=== PATIENT | female | born 1940 | race Hispanic/Latino ===

== ENCOUNTER → 2017-05-09 | Outpatient (CLI) | payer MEDICARE | END | disposition home or self-care (01) | LOC: RAH 09:05 | PROVIDERS: ATTEND Internal Medicine | DX: E04.2 Nontoxic multinodular goiter (principal); E11.65 Type 2 diabetes mellitus with hyperglycemia; I10 Essential (primary) hypertension; E78.5 Hyperlipidemia, unspecified; F03.90 Unspecified dementia, unspecified severity, without behavioral disturbance, psychotic disturbance, mood disturbance, and anxiety; I25.10 Atherosclerotic heart disease of native coronary artery without angina pectoris; Z95.5 Presence of coronary angioplasty implant and graft; Z83.3 Family history of diabetes mellitus; Z82.49 Family history of ischemic heart disease and other diseases of the circulatory system; Z88.0 Allergy status to penicillin; Z90.710 Acquired absence of both cervix and uterus; Z98.890 Other specified postprocedural states; Z79.899 Other long term (current) drug therapy | CPT/HCPCS: 10022; 76942; 88173; 88305; A4215; 60100 ==

== ENCOUNTER → 2017-07-05 | Outpatient (CLI) | payer MEDICARE | END | disposition home or self-care (01) | LOC: OIH 14:09 | PROVIDERS: ATTEND Family Medicine | DX: M85.871 Other specified disorders of bone density and structure, right ankle and foot (principal) | CPT/HCPCS: 73630 ==

== ENCOUNTER → 2017-09-13 | Outpatient (CLI) | payer MEDICARE | END | disposition home or self-care (01) | LOC: OIH 11:04 | PROVIDERS: ATTEND Family Medicine | DX: S92.911A Unspecified fracture of right toe(s), initial encounter for closed fracture (principal); X58.XXXA Exposure to other specified factors, initial encounter; Y93.89 Activity, other specified; Y92.89 Other specified places as the place of occurrence of the external cause; Y99.8 Other external cause status | CPT/HCPCS: 73630 ==

== ENCOUNTER → 2017-12-19 | Outpatient (CLI) | payer MEDICARE, OTHER | END | disposition home or self-care (01) | LOC: OIH 10:31 | PROVIDERS: ATTEND Family Medicine | DX: M19.012 Primary osteoarthritis, left shoulder (principal) | CPT/HCPCS: 73030 ==

== ENCOUNTER 2018-10-22 14:20 | Emergency (ER) | payer MEDICARE ==
[2018-10-22] MEDS ORDERED: FAMOTIDINE 20MG TAB 20 MG TAB ONE (15:19)
[2018-10-22] MEDS ORDERED: MAG HYDROX/AL HYDROX/SIMETH ES 30 ML SUSP UDCUP ONE (15:19)
[2018-10-22] MEDS ORDERED: LIDOCAINE HCL 2% VISCOUS 15 ML UDCUP ONE (15:19)
[2018-10-22 15:21] LABS: BASOPHILS % (AUTO) 1.4 % (0.0-5.0); EOSINOPHILS % (AUTO) 2.1 % (0.0-8.0); HEMATOCRIT 44.3 % (36-48); LYMPHOCYTES % (AUTO) 27.4 % (21.0-51.0); MEAN CORPUSCULAR HEMOGLOBIN 29.5 pg (27.0-33.0); MEAN CORPUSCULAR VOLUME 86.7 fL (79-99); MONOCYTES % (AUTO) 6.9 % (3.0-13.0); NEUTROPHILS % (AUTO) 62.2 % (40.0-77.0); PLATELET COUNT (AUTO) 348 K/uL (130-400); RED BLOOD CELL COUNT(AUTO) 5.11 MIL/uL (4.00-5.50); RED CELL DISTRIBUTION WIDTH 13.8 % (11.0-15.5); WHITE BLOOD COUNT (AUTO) 10.8 K/uL (4.8-10.8)
[2018-10-22 15:31] LABS: APPEARANCE,URINE SL CLOUDY (CLEAR); BILIRUBIN,URINE NEGATIVE (NEGATIVE); COLOR,URINE YELLOW (YELLOW); GLUCOSE, URINE (UA) >=1000 mg/dL (NEGATIVE); KETONES,URINE NEGATIVE (NEGATIVE); LEUKOCYTE ESTERASE ,URINE NEGATIVE (NEGATIVE); NITRATE,URINE POSITIVE (NEGATIVE); OCCULT BLOOD,URINE TRACE-INTACT (NEGATIVE); PROTEIN,URINE NEGATIVE (NEGATIVE); UROBILINOGEN,URINE 0.2 mg/dL (0.2-1.0)
[2018-10-22 15:35] LABS: CREATININE 0.9 mg/dL (0.5-1.5); POTASSIUM 4.2 mmol/L (3.5-5.1)
[2018-10-22 15:39] LABS: ALBUMIN 4.3 g/dL (3.5-5.0); BILIRUBIN,TOTAL 0.3 mg/dL (0.2-1.0); TOTAL PROTEIN, SERUM 7.9 g/dL (6.0-8.3)
[2018-10-22 15:50] LABS: BACTERIA,URINE Moderate /HPF (None Seen); RBC,URINE 0-1 /HPF (0-1); SQUAMOUS EPITHELIAL CELL,UR Few /HPF (0-2)
[2018-10-22] MEDS ORDERED: CEPHALEXIN 500 MG CAPSULE ONE (16:31)
[2018-10-22] MEDS ORDERED: MORPHINE SULFATE 2 MG/ML 1ML SYG ONE ×2 (16:45→17:24)
== END 2018-10-22 19:31 | disposition home or self-care (01) ==
LOC: EDH 14:20
DX: N39.0 Urinary tract infection, site not specified (principal); R10.13 Epigastric pain; R74.8 Abnormal levels of other serum enzymes; E11.9 Type 2 diabetes mellitus without complications; I10 Essential (primary) hypertension; E78.5 Hyperlipidemia, unspecified; G30.9 Alzheimer's disease, unspecified; F02.80 Dementia in other diseases classified elsewhere, unspecified severity, without behavioral disturbance, psychotic disturbance, mood disturbance, and anxiety; Z90.710 Acquired absence of both cervix and uterus; Z90.49 Acquired absence of other specified parts of digestive tract; Z88.0 Allergy status to penicillin
CPT/HCPCS: 36415; 80053; 81001; 83690; 84484; 85025; 93005; 96374; 96376

== ENCOUNTER 2018-10-26 17:52 | Inpatient (IN) | payer MEDICARE ==
[~2018-10-26] VITALS: Ht 167.6 cm; Wt 61.1 kg
[2018-10-26] MEDS ORDERED: ONDANSETRON HCL 4 MG/2 ML VIAL ONE (18:50)
[2018-10-26] MEDS ORDERED: FAMOTIDINE/PF 20 MG/2 ML VIAL IV ONE (18:50)
[2018-10-26 18:54] LABS: BASOPHILS % (AUTO) 1.2 % (0.0-5.0); EOSINOPHILS % (AUTO) 1.3 % (0.0-8.0); HEMATOCRIT 47.9 % (36-48); LYMPHOCYTES % (AUTO) 24.6 % (21.0-51.0); MEAN CORPUSCULAR HEMOGLOBIN 28.6 pg (27.0-33.0); MEAN CORPUSCULAR HGB CONC 32.7 g/dL (32.0-36.0); MEAN CORPUSCULAR VOLUME 87.4 fL (79-99); NEUTROPHILS % (AUTO) 64.9 % (40.0-77.0); NUCLEATED RED BLOOD CELLS 0.1 % (0.0-0.19); PLATELET COUNT (AUTO) 338 K/uL (130-400); RED BLOOD CELL COUNT(AUTO) 5.49 MIL/uL (4.00-5.50); RED CELL DISTRIBUTION WIDTH 14.1 % (11.0-15.5); WHITE BLOOD COUNT (AUTO) 7.4 K/uL (4.8-10.8)
[2018-10-26 19:05] LABS: POTASSIUM 3.6 mmol/L (3.5-5.1)
[2018-10-26] MEDS ORDERED: LIDOCAINE HCL 2% VISCOUS 15 ML UDCUP ONE (19:06)
[2018-10-26] MEDS ORDERED: MAG HYDROX/AL HYDROX/SIMETH ES 30 ML SUSP UDCUP ONE (19:06)
[2018-10-26 19:14] LABS: ALBUMIN 3.9 g/dL (3.5-5.0); BILIRUBIN,TOTAL 0.7 mg/dL (0.2-1.0); TOTAL PROTEIN, SERUM 7.6 g/dL (6.0-8.3)
[2018-10-26] MEDS ORDERED: IOHEXOL-350 75 ML VIAL IV ONE (19:16)
[2018-10-26 19:32] LABS: APPEARANCE,URINE Clear (CLEAR); BILIRUBIN,URINE Negative (NEGATIVE); COLOR,URINE Yellow (YELLOW); GLUCOSE, URINE (UA) >=1000 mg/dL (NEGATIVE); KETONES,URINE Trace mg/dL (NEGATIVE); LEUKOCYTE ESTERASE ,URINE Negative (NEGATIVE); NITRATE,URINE Negative (NEGATIVE); OCCULT BLOOD,URINE Negative (NEGATIVE); PH,URINE 7.5 (5.0-8.0); PROTEIN,URINE Negative (NEGATIVE); UROBILINOGEN,URINE 0.2 mg/dL (0.2-1.0)
[2018-10-26 19:56] LABS: BACTERIA,URINE Rare /HPF (None Seen); RBC,URINE None Seen /HPF (0-1); SQUAMOUS EPITHELIAL CELL,UR 0-2 /HPF (0-2); WBC,URINE None Seen /HPF (0-1)
[2018-10-26] MEDS ORDERED: ACETAMINOPHEN 325 MG TAB PO PRN ×2 (23:45)
[2018-10-26] MEDS ORDERED: ZOLPIDEM TARTRATE 5 MG TAB PO PRN (23:45)
[2018-10-26] MEDS ORDERED: DIPHENHYDRAMINE HCL 25 MG CAPSULE PO PRN (23:45)
[2018-10-26] MEDS ORDERED: DiphenhydrAMINE HCL 50 MG/ML VIAL IVP PRN (23:45)
[2018-10-26] MEDS ORDERED: NITROGLYCERIN 0.4 MG SL TAB SL PRN (23:45)
[2018-10-26] MEDS ORDERED: LACTULOSE 20 GM/30 ML UDCUP PO PRN (23:45)
[2018-10-26] MEDS ORDERED: GUAIFENESIN SUGAR-FREE 100 MG/5 ML UDCUP PO PRN (23:45)
[2018-10-26] MEDS ORDERED: CLONIDINE HCL 0.1 MG TABLET PO PRN (23:45)
[2018-10-26] MEDS ORDERED: GUAIFENESIN-DM 200/20 MG 10 ML PO PRN (23:45)
[2018-10-26] MEDS ORDERED: MORPHINE SULFATE 2 MG/ML 1ML SYG IVP PRN (23:45)
[2018-10-27] VITALS (8 sets, daily range): BP systolic 118–173; BP diastolic 59–84
[2018-10-27] MEDS ORDERED: GLIP5TAB11 PO (01:53)
[2018-10-27] MEDS ORDERED: LEVO25TA54 PO (01:53)
[2018-10-27] MEDS ORDERED: FAMO20TA8 PO (01:53)
[2018-10-27] MEDS ORDERED: SUCR1TAB2 PO (01:53)
[2018-10-27] MEDS ORDERED: METF-444 PO (01:53)
[2018-10-27] MEDS ORDERED: CLOP75TA14 PO (01:53)
[2018-10-27] MEDS ORDERED: TEMA15CA PO (01:53)
[2018-10-27] MEDS ORDERED: PRAV20TA4 PO (01:53)
[2018-10-27] MEDS ORDERED: INVOK100TB PO (01:53)
[2018-10-27] MEDS ORDERED: MEMA1CAP2 PO (01:53)
[2018-10-27] MEDS ORDERED: CEPH500C2 PO (01:53)
[2018-10-27] MEDS ORDERED: AMLO10TA7 PO (01:53)
[2018-10-27] MEDS ORDERED: LISI40TA4 PO (01:53)
[2018-10-27] MEDS ORDERED: TYL3 PO (01:53)
[2018-10-27] MEDS: LACTATED RINGERS 1000ML 1,000 ML IV SCH ×3 (02:00→23:02)
[2018-10-27 06:25] LABS: HEMATOCRIT 43.8 % (36-48); MEAN CORPUSCULAR HEMOGLOBIN 29.8 pg (27.0-33.0); MEAN CORPUSCULAR HGB CONC 33.9 g/dL (32.0-36.0); MEAN CORPUSCULAR VOLUME 87.8 fL (79-99); NUCLEATED RED BLOOD CELLS 0.1 % (0.0-0.19); PLATELET COUNT (AUTO) 280 K/uL (130-400); RED BLOOD CELL COUNT(AUTO) 4.99 MIL/uL (4.00-5.50); RED CELL DISTRIBUTION WIDTH 14.2 % (11.0-15.5); WHITE BLOOD COUNT (AUTO) 8.2 K/uL (4.8-10.8)
[2018-10-27 06:42] LABS: ALBUMIN 3.6 g/dL (3.5-5.0); BILIRUBIN,TOTAL 0.5 mg/dL (0.2-1.0); CREATININE 0.8 mg/dL (0.5-1.5); POTASSIUM 3.3 mmol/L (3.5-5.1); TOTAL PROTEIN, SERUM 7.1 g/dL (6.0-8.3)
[2018-10-27] MEDS: PANTOPRAZOLE 40 MG/VIAL IVP SCH (08:11)
[2018-10-27] MEDS: ONDANSETRON HCL 4 MG/2 ML VIAL IVP PRN (08:11)
--- NOTE | 2018-10-27 14:50 | NUR ---
DCP CM met with pt discussed dc plans. Pt is independent prior to admission, lives at home with daughter and significant other. Has a cane and shower chair. Denies any other equipments/services. Pt feels safe to go back home, daughter able to assist with transportation and needs. DC plan to home once stable. CM to cont to follow up. Addendum: 10/27/18 at 1451 by NIDIA BYRNE LVN CM Amended: Links added.
[2018-10-28] VITALS (19 sets, daily range): BP systolic 100–154; BP diastolic 45–79
[2018-10-28 05:36] LABS: BASOPHILS % (AUTO) 0.4 % (0.0-5.0); EOSINOPHILS % (AUTO) 5.1 % (0.0-8.0); HEMATOCRIT 43.6 % (36-48); LYMPHOCYTES % (AUTO) 28.7 % (21.0-51.0); MEAN CORPUSCULAR HEMOGLOBIN 29.5 pg (27.0-33.0); MEAN CORPUSCULAR HGB CONC 33.6 g/dL (32.0-36.0); MEAN CORPUSCULAR VOLUME 87.9 fL (79-99); MONOCYTES % (AUTO) 8.1 % (3.0-13.0); NEUTROPHILS % (AUTO) 57.7 % (40.0-77.0); NUCLEATED RED BLOOD CELLS 0.2 % (0.0-0.19); PLATELET COUNT (AUTO) 301 K/uL (130-400); RED BLOOD CELL COUNT(AUTO) 4.96 MIL/uL (4.00-5.50); RED CELL DISTRIBUTION WIDTH 14.3 % (11.0-15.5); WHITE BLOOD COUNT (AUTO) 9.6 K/uL (4.8-10.8)
[2018-10-28] MEDS: PANTOPRAZOLE 40 MG/VIAL IVP SCH (09:00)
[2018-10-28] MEDS: LACTATED RINGERS 1000ML 1,000 ML IV SCH ×2 (10:22→20:52)
--- NOTE | 2018-10-28 11:12 | NUR ---
RD Notification Patient pending EGD. Patient reports poor appetite due to abdominal pain. Patient with Clear liquid diet in place. Patient reports no nausea, vomiting, constipation, diarrhea. Patient LBM 10/27/18. Patient monitored labs: K 3.3, Glu 145, AST 238, ALT 463, Alk 148. RD to continue to monitor. When medically feasible, recommend to advance diet as tolerated to Soft, 75gm CC, Heart Healthy Diet. Please notify RD as nutritional concerns arise. Thank you. Addendum: 10/28/18 at [address] Amended: Links added.
[2018-10-28] MEDS: ONDANSETRON HCL 4 MG/2 ML VIAL IVP PRN (20:50)
[2018-10-28] MEDS: PANTOPRAZOLE SODIUM 40 MG TABLET.DR PO SCH (20:50)
[2018-10-28] MEDS: MAG HYDROX/AL HYDROX/SIMETH ES 30 ML SUSP UDCUP PO PRN (20:50)
[2018-10-29] VITALS: BP 132/68
[2018-10-29 04:51] VITALS: BP 124/72
[2018-10-29 07:30] VITALS: BP 139/76
[2018-10-29] MEDS: MAG HYDROX/AL HYDROX/SIMETH ES 30 ML SUSP UDCUP PO PRN (07:45)
[2018-10-29] MEDS: PANTOPRAZOLE SODIUM 40 MG TABLET.DR PO SCH ×2 (07:45→20:21)
[2018-10-29] MEDS: LACTATED RINGERS 1000ML 1,000 ML IV SCH ×2 (10:59→21:57)
[2018-10-29 11:00] VITALS: BP 128/61
--- NOTE | 2018-10-29 15:10 | NUR ---
RD Follow-up note Patient tolerating High fiber diet with no report of GI distress and PO intake at 100%. RD provided diet education of nutrition recommendations for high fiber diet. Education provided to patient and family. Patient verbalized understanding. Patient LBM 10/27/18. Patient monitored labs: Glu 157. RD to continue to monitor. Please notify RD as nutritional concerns arise. Thank you. Addendum: 10/29/18 at [address] RD Amended: Links added.
--- NOTE | 2018-10-29 15:19 | NUR ---
Diet Education RD provided High Fiber Diet education to patient and family as present. Patient and family with numerous questions about healthy eating out. RD answered questions. RD provided reference materials and handouts. Patient verbalized understanding. RD to follow-up. Addendum: 10/29/18 at [address] Amended: Links added.
[2018-10-29 16:00] VITALS: BP 157/83
[2018-10-29 20:00] VITALS: BP 149/70
[2018-10-30] VITALS (7 sets, daily range): BP systolic 137–168; BP diastolic 67–79
[2018-10-30] MEDS ORDERED: LIDOCAINE HCL 2% VISCOUS 30 ML, MAG HYDROX/AL HYDROX/SIMETH 30 ML, DICYCLOMINE HCL 20 MG PO PRN ×3 (11:30)
[2018-10-30] MEDS ORDERED: PHARMACY COMMUNICATION MISC SCH (11:30)
[2018-10-30] MEDS ORDERED: COMPOUND PO MISCELLANEOUS 1 EACH MISC MISC PRN (11:30)
[2018-10-30] MEDS: PANTOPRAZOLE SODIUM 40 MG TABLET.DR PO SCH ×2 (11:39→20:39)
[2018-10-30] MEDS: LACTATED RINGERS 1000ML 1,000 ML IV SCH (11:39)
[2018-10-30] MEDS: MAG HYDROX/AL HYDROX/SIMETH ES 30 ML SUSP UDCUP PO PRN (11:39)
--- NOTE | 2018-10-30 16:00 | NUR ---
cm note met with patient and family, and states they wish to go to [facility] for sn[facility] level of care. rehab. orders received. referral and [facility] faxed to [facility] spoke to Sandy jeffries, states will come and evaluate pt today.
[2018-10-30] MEDS: SUCRALFATE 1 GM TABLET PO SCH ×3 (16:29→20:39)
[2018-10-30] MEDS: METFORMIN HCL 500 MG TABLET PO SCH (16:30)
[2018-10-30] MEDS: Pravastatin Sodium 20 MG PO SCH (20:44)
[2018-10-31] MEDS: TEMAZEPAM 15 MG CAPSULE PO SCH ×2 (00:22→22:09)
[2018-10-31 04:00] VITALS: BP 142/74
[2018-10-31] MEDS: LEVOTHYROXINE 25 MCG TABLET PO SCH (07:03)
[2018-10-31 08:15] VITALS: BP 157/77
[2018-10-31] MEDS ORDERED: GLIPIZIDE 5 MG TABLET PO SCH (09:00)
[2018-10-31] MEDS ORDERED: LISINOPRIL 40 MG TABLET PO SCH (09:00)
[2018-10-31] MEDS ORDERED: DONEPEZIL HCL PO SCH (09:00)
[2018-10-31] MEDS ORDERED: MEMANTINE HCL PO SCH (09:00)
[2018-10-31] MEDS ORDERED: [UNRECOGNIZED DRUG - OTHER] PO SCH (09:00)
[2018-10-31] MEDS ORDERED: AMLODIPINE BESYLATE 5 MG TAB PO SCH (09:00)
[2018-10-31] MEDS ORDERED: CLOPIDOGREL BISULFATE 75 MG TAB PO SCH (09:00)
[2018-10-31] MEDS: METFORMIN HCL 500 MG TABLET PO SCH ×2 (09:20→17:00)
[2018-10-31] MEDS: MAG HYDROX/AL HYDROX/SIMETH ES 30 ML SUSP UDCUP PO PRN ×2 (09:20→13:30)
[2018-10-31] MEDS: SUCRALFATE 1 GM TABLET PO SCH ×4 (09:21→22:09)
[2018-10-31] MEDS: PANTOPRAZOLE SODIUM 40 MG TABLET.DR PO SCH ×2 (09:21→22:09)
[2018-10-31] MEDS: LACTATED RINGERS 1000ML 1,000 ML IV SCH ×2 (09:22→21:10)
[2018-10-31 11:43] VITALS: BP 137/79
--- NOTE | 2018-10-31 15:00 | NUR ---
CM Note: [facility] ins auth and acceptance Spoke to Sandy w/[facility], pt has ins auth and acceptance. Pt may transfer via transport van. Primary nurse aware. CM to cont to follow up.
[2018-10-31 16:00] VITALS: BP 145/77
[2018-10-31 19:45] VITALS: BP 149/81
--- NOTE | 2018-10-31 19:47 | NUR ---
DC 1550 RECEIVED CALL FROM CHELO CLOTH FINISHING RANGE OPERATOR, PATIENT IS ACCEPTED AT [facility], [address] BARBA, 1605 RECEIVED ORDER FOR DC TO [facility]; INFORMED FAMILY. 1650 DC COMPLETE, PLACED CALL TO [facility] FOR REPORT NO ANSWER. 165 PLACED CALL TO [facility], NO ANSWER. NOTIFIED CHELO AND JEAN CLAUDE RN 1730 PLACED CALL TO [facility] NO ASNWER 1805 NO RETURN CALL FROM [facility], FAMILY STATES IT IS TOO LATE REQUESTING TO DC IN MORNING, INFORMED DR BARBA, STATES OK TO HOLD DC, DC IN TOOL TURRET LATHE SET UP OPERATOR. 182 FAMILY STATES IT IS OK TO DC, CHARGE NURSE NOTIFIED 183 NO RETURN CALL FROM [facility], PLACED CALL TO [facility], NO ANSWER MULTIPLE ATTEMPTS. 1916 PLACED CALL TO [facility], "ASH" ANSWERED, INFORMED ABOUT PENDING DC. MED REC FAXED TO [phone], INFORMED NEED TO GIVE REPORT, WAS PLACED ON HOLD 5 MIN, ASH ANSWERS, STATES NURSE IS BUSY, STATES SHE WILL "TAKE THE PHONE TO THE NURSE" 1939 NO CALL BACK FROM [facility], PLACED CALL NO ANSWER MULTIPLE ATTEMPTS, REPORT GIVEN TO BELL FISCHER, INFORMED OF SITUATION 1944 PLACED CALL TO [facility] NO RETURN CALL, NO ANSWER, STOCKROOM COORDINATOR, CHARGE NURSE AND CASE MANAGEMENT AWARE.
--- NOTE | 2018-10-31 20:19 | NUR ---
REPORT ATTEMPT TO CALL REPORT TO [facility] , IRON SETTER ANSWER TRANSFERRED CALL TO DESIGNATED NURSES STATION, NO ANSWER , UNABLE TO GIVEN REPORT
--- NOTE | 2018-10-31 20:50 | NUR ---
REPORT CALLED [facility] , NO ANSWER , UNABLE TO GIVEN REPORT, MOLD MAKING PLASTICS SHEETS SUPERVISOR EDNA WYLIE R.N. INFORMED UNABLE TO GIVE REPORT, PER MOLD MAKING PLASTICS SHEETS SUPERVISOR SHE ATTEMPT TO CALL [facility] ALSO WITH NO ANSWER
--- NOTE | 2018-10-31 20:50 | NUR ---
REPORT CALLED [facility] NO ANSWER , UNABLE TO GIVE REPORT
[2018-10-31] MEDS: Pravastatin Sodium 20 MG PO SCH (21:00)
--- NOTE | 2018-10-31 22:25 | NUR ---
REPORT ATTEMPT TO CALL [facility] , NO ANSWER, JEAN CLAUDE JENSEN R.N INFORMED OF NO ANSWER, SHE WILL CALL ISAIAH FARAH INFORMED OF [facility] NOT ANSWERING TO GIVEN REPORT
--- NOTE | 2018-10-31 22:55 | NUR ---
REPORT REPORT GIVEN TO [facility] NURSE GURU XIAO TIME CYCLE OPERATOR VIA PHONE, PER NURSE NO TRANSPORT AVAILABLE AT THIS TIME TILL TOMORROW
--- NOTE | 2018-10-31 22:57 | NUR ---
FAMILY CALLED FAMILY VIA PHONE , SPOKE TO DAUGHTER ALEC MATIAS, INFORMED THAT REPORT WAS GIVEN AND SHE CAN BE DISCHARGE TO [facility], BUT WE HAVE NO TRANSPORT, ASKED DAUGHTER IF SHE COULD TAKE PATIENT IN PRIVATE CAR [place], PTS DAUGHTER UPSET STATED " WE HAVE BEEN THERE ALL DAY, IM NOT GOING BACK [place], SHE CAN STAY THERE [place]"
--- NOTE | 2018-10-31 23:00 | NUR ---
TRACK LAYING EQUIPMENT OPERATOR SPOKE TO EDNA WYLIE R.N [place] SUPER VISOR INFORMED REPORT WAS GIVEN BUT [facility] HAS NO TRANSPORT AT THIS TIME, INFORMED TRACK LAYING EQUIPMENT OPERATOR THAT FAMILY WAS CALLED INFORMED THAT REPORT WAS GIVEN , FAMILY UPSET AND NOT WILLING TO COME BACK TONIGHT TO TAKE HER TO [facility]
--- NOTE | 2018-10-31 23:05 | NUR ---
CHARGE NURSE SPOKE TO JEAN CLAUDE MIKEY العلي INFORMED THAT REPORT WAS GIVEN BUT WE HAVE NO TRANSPORT TONIGHT AND FAMILY NOT WILLING TO TAKE HER [place], Romeo MIKEY WILL NOTIFY ISAIAH AUGUSTIN R.N AND DEMARCO VILLASENOR R.N
[2018-10-31 23:16] VITALS: BP 143/76
[2018-11-01 03:50] VITALS: BP 123/62
[2018-11-01] MEDS: LEVOTHYROXINE 25 MCG TABLET PO SCH (06:15)
[2018-11-01 07:41] VITALS: BP 135/80
--- NOTE | 2018-11-01 08:17 | NUR ---
REPORT PLACED CALL TO [facility], REPORT WAS CALLED TO GURU XIAO LVN, NURSE STATES SHE DOES NOT HAVE REPORT, DID NOT RECEIVE REPORT FROM GURU XIAO LVN, NO DOCUMENTATION SHE RECEIVED REPORT. REPORT GIVEN AGAIN. STATES NEED TO FAX DC MED REC, EXPLAINED MED REC WELL ALL ORDERS FAXED LAST NIGHT MULTIPLE TIMES. NURSE TOOK REPORT STATES SHE IS SENDING FIELD EXAMINER PATIENT WILL BE GOING TO ROOM 605. MYRON FISCHER AND ISAIAH RN INFORMED.
== END 2018-11-01 10:11 | DRG 384 ==
LOC: EDH 17:52 → OBSVTOIN 22:40 → EDHIP 22:40 → 4BH 10-27 00:57
PROVIDERS: ADMIT Family Medicine; ATTEND Family Medicine
PROC: 0DB98ZX Excision of Duodenum, Via Natural or Artificial Opening Endoscopic, Diagnostic (ICD-10-PCS; principal; 2018-10-28)
PROC: 0DB78ZX Excision of Stomach, Pylorus, Via Natural or Artificial Opening Endoscopic, Diagnostic (ICD-10-PCS; 2018-10-28)
PROC: 0DB68ZX Excision of Stomach, Via Natural or Artificial Opening Endoscopic, Diagnostic (ICD-10-PCS; 2018-10-28)
DX: K27.9 Peptic ulcer, site unspecified, unspecified as acute or chronic, without hemorrhage or perforation (principal); R18.8 Other ascites; K29.00 Acute gastritis without bleeding; K75.9 Inflammatory liver disease, unspecified; K21.0 Gastro-esophageal reflux disease with esophagitis; K44.9 Diaphragmatic hernia without obstruction or gangrene; F02.80 Dementia in other diseases classified elsewhere, unspecified severity, without behavioral disturbance, psychotic disturbance, mood disturbance, and anxiety; G30.9 Alzheimer's disease, unspecified; G51.0 Bell's palsy; K74.60 Unspecified cirrhosis of liver; I86.4 Gastric varices; F41.9 Anxiety disorder, unspecified; E11.36 Type 2 diabetes mellitus with diabetic cataract; E78.5 Hyperlipidemia, unspecified; I10 Essential (primary) hypertension; I25.10 Atherosclerotic heart disease of native coronary artery without angina pectoris; J45.909 Unspecified asthma, uncomplicated; Z95.5 Presence of coronary angioplasty implant and graft; Z90.710 Acquired absence of both cervix and uterus; Z88.0 Allergy status to penicillin; Z83.3 Family history of diabetes mellitus; Z82.49 Family history of ischemic heart disease and other diseases of the circulatory system; Z82.3 Family history of stroke; Z80.8 Family history of malignant neoplasm of other organs or systems
CPT/HCPCS: 36415; 43239; 71045; 74176; 74177; 76705; 80048; 80053; 80076; 81001; 82550; 82948; 83605; 83690; 83880; 84484; 85025; 85027; 85610; 85730; 88305; 93005; 96374; 97039; C9113; G0378; J2405; J3490; J7120; Q9967

== ENCOUNTER 2020-01-21 01:27 | Observation (INO) | payer MEDICARE ==
[~2020-01-21 01:27] MED LIST: AMLO10TA7 PO; CLOP75TA14 PO; FAMO20TA8 PO; GLIP5TAB11 PO; INVOK100TB PO; LEVO25TA54 PO; LISI40TA4 PO; MEMA1CAP2 PO; METF-444 PO; PRAV20TA4 PO; SUCR1TAB2 PO; TEMA15CA PO; TYL3 PO
[2020-01-21 02:22] LABS: APPEARANCE,URINE Cloudy (CLEAR); BILIRUBIN,URINE Negative (NEGATIVE); COLOR,URINE Yellow (YELLOW); GLUCOSE, URINE (UA) 500 mg/dL (NEGATIVE); KETONES,URINE Negative (NEGATIVE); LEUKOCYTE ESTERASE ,URINE Large (NEGATIVE); NITRATE,URINE Positive (NEGATIVE); OCCULT BLOOD,URINE Small (NEGATIVE); PH,URINE 6.5 (5.0-8.0); PROTEIN,URINE POS 1+ mg/dL (NEGATIVE); UROBILINOGEN,URINE 0.2 mg/dL (0.2-1.0)
[2020-01-21 02:29] LABS: BACTERIA,URINE Many /HPF (None Seen); SQUAMOUS EPITHELIAL CELL,UR Rare /HPF (0-2); WBC,URINE 26-50 /HPF (0-1); YEAST,URINE BUDDING None Seen /HPF (None Seen)
[2020-01-21 03:30] LABS: BASOPHILS % (AUTO) 0.4 % (0.0-5.0); EOSINOPHILS % (AUTO) 0.4 % (0.0-8.0); HEMATOCRIT 38.9 % (36-48); MEAN CORPUSCULAR HEMOGLOBIN 29.4 pg (27.0-33.0); MONOCYTES % (AUTO) 6.5 % (3.0-13.0); NEUTROPHILS % (AUTO) 85.3 % (40.0-77.0); PLATELET COUNT (AUTO) 276 K/uL (130-400); RED BLOOD CELL COUNT(AUTO) 4.63 MIL/uL (4.00-5.50); RED CELL DISTRIBUTION WIDTH 13.3 % (11.0-15.5); WHITE BLOOD COUNT (AUTO) 13.8 K/uL (4.8-10.8)
[2020-01-21 03:43] LABS: POTASSIUM 3.7 mmol/L (3.5-5.1)
[2020-01-21 03:44] LABS: INR 0.91 (0.85-1.15); PARTIAL THROMBOPLASTIN TIME 27.6 SEC (26.3-35.5); PROTHROMBIN TIME 9.9 SEC (9.6-11.6)
[2020-01-21 03:55] LABS: ALBUMIN 4.2 g/dL (3.5-5.0); BILIRUBIN,TOTAL 0.3 mg/dL (0.2-1.0); TOTAL PROTEIN, SERUM 8.2 g/dL (6.0-8.3)
[2020-01-21 03:58] LABS: B-TYPE NATRIURETIC PEPTIDE 56 pg/mL (0-100)
[2020-01-21] MEDS ORDERED: LEVOFLOXACIN 500 MG/D5W 100 ML 100 ML ONE (04:07)
[2020-01-21] MEDS ORDERED: DIPHENHYDRAMINE HCL 25 MG CAPSULE ONE (05:03)
[2020-01-21] MEDS ORDERED: SODIUM CHLORIDE 0.9% 1000ML 1,000 ML IV SCH (06:00)
[2020-01-21] MEDS ORDERED: TRAMADOL HCL 50 MG TABLET ONE (08:21)
[2020-01-21] MEDS ORDERED: PANTOPRAZOLE 40 MG/VIAL IVP SCH (09:00)
[2020-01-21 10:40] VITALS: BP 130/78
[2020-01-21] MEDS ORDERED: ACETAMINOPHEN 325 MG TAB PO PRN ×2 (11:00→23:45)
[2020-01-21] MEDS ORDERED: TRAMADOL HCL 50 MG TABLET PO PRN (11:15)
--- NOTE | 2020-01-21 11:38 | NUR ---
CONTACT DR. BARBA ABOUT PATIENT/STATUS, ORDER FOR TELE RECD, NA 127, HX AFIB,POSS SEIZURE, TELE ORDER
--- NOTE | 2020-01-21 11:57 | NUR ---
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 WAS COVID + IN DECEMBER, ISOLATED FOR ++ WEEKS, RE TESTED NEGATIVE, MOVED TO NON COVID AREA- DTR STATES PT REQUIRES ASSISTANCE WITH ADLS, WALKS W/ ROLLING WALKER, PLAN IS FOR RETURN TO SNF; , ADVISED DTR THAT WE WILL RE TEST FOR COVID ON THIS ADMIT, BUT THAT SHOULD NOT HOLD UP REFERRAL BACK TO [facility], OTILIO IS THE MPOA, ADDED DAUGHTER MYRON REIS SECOND CONTACT, FAXED FACE SHEET TO REGISTRATION FOR UPDATING. PT WOULD BE A VAN TRANSPORT ON DISCHARGE BACK TO [facility].. CM TO FOLLOW Addendum: 01/21/20 at 1202 by LEONARDA JAIME RN CM Amended: Links added.
--- NOTE | 2020-01-21 12:23 | NUR ---
CM Note: [facility] pending reacceptance CM obtained telephone consent MARC for [facility], pt was a [facility] resident at facility. Faxed ED progress notes and MARS, confirmation received. Spoke to Karma awaiting response of pt need new PASRR and COvid test. Pt pending reacceptance. Pt safe to transfer via [facility] transport van once ready to DC. Primary nurse aware. CM to cont to follow up.
--- NOTE | 2020-01-21 12:30 | NUR ---
OTILIO pt daughter called requesting update for her Mother ,explained to daughter she was admitted to the room jeronimo 2 hours ago ,no new orders at this time ,pt is stable and resting in room pleasant and moderately confused
[2020-01-21 16:39] VITALS: BP 127/59
--- NOTE | 2020-01-21 18:00 | NUR ---
DAUGHTER OTILIO updated daughter of Mothers status ,informed daughter of covid nasal testing for placement back to [facility] ,voices understanding
[2020-01-21 20:00] VITALS: BP 134/76
[2020-01-21] MEDS ORDERED: ACET-2247 PO (23:41)
[2020-01-21] MEDS ORDERED: IBUP-2077 PO ×2 (23:41)
[2020-01-21] MEDS ORDERED: GLIP10TA9 PO (23:41)
[2020-01-21] MEDS ORDERED: MELA1TAB17 PO (23:41)
[2020-01-21] MEDS ORDERED: LOPE2TAB24 PO (23:41)
[2020-01-21] MEDS ORDERED: HYDR-4457 PO (23:41)
[2020-01-21] MEDS ORDERED: PANT40TA PO (23:41)
[2020-01-21] MEDS ORDERED: DONE10TA43 PO (23:41)
[2020-01-21] MEDS ORDERED: ATOR10 PO (23:41)
[2020-01-21] MEDS ORDERED: ONDA4TAB4 PO (23:41)
[2020-01-21] MEDS ORDERED: HC A30CR13 TP (23:41)
[2020-01-21] MEDS ORDERED: HYDR12.54 PO (23:41)
[2020-01-21] MEDS ORDERED: MEMA14CA PO (23:41)
[2020-01-21] MEDS ORDERED: BACL10TA PO (23:41)
[2020-01-21] MEDS ORDERED: DICY10 PO (23:41)
[2020-01-21] MEDS ORDERED: OLOP5DRO21 OU (23:41)
[2020-01-21] MEDS ORDERED: CITA20TA17 PO (23:41)
[2020-01-21] MEDS ORDERED: DICYCLOMINE HCL 20 MG TAB PO PRN (23:45)
[2020-01-21] MEDS ORDERED: HYDROCODONE/ACETAMINOPHEN 5/325 MG TAB PO PRN (23:45)
[2020-01-21] MEDS ORDERED: ONDANSETRON 4 MG TABLET PO PRN (23:45)
[2020-01-21] MEDS ORDERED: LOPERAMIDE HCL 2 MG CAP PO PRN (23:45)
[2020-01-21] MEDS ORDERED: IBUPROFEN 800 MG TAB PO PRN ×2 (23:45)
[2020-01-21 23:50] VITALS: BP 125/56
[2020-01-22 04:30] VITALS: BP 158/64
[2020-01-22] MEDS ORDERED: LEVOFLOXACIN 500 MG/D5W 100 ML 100 ML IV SCH (05:00)
[2020-01-22] MEDS: BACLOFEN 10 MG TABLET PO SCH ×2 (06:21→14:29)
[2020-01-22] MEDS ORDERED: LEVOTHYROXINE 25 MCG TABLET PO SCH (07:30)
[2020-01-22] MEDS ORDERED: GLIPIZIDE 5 MG TABLET PO SCH (07:30)
[2020-01-22] MEDS ORDERED: PANTOPRAZOLE SODIUM 40 MG TABLET.DR PO SCH (07:30)
[2020-01-22 08:00] VITALS: BP 146/67
[2020-01-22] MEDS ORDERED: METFORMIN HCL 500 MG TABLET PO SCH (08:00)
[2020-01-22] MEDS ORDERED: HYDROCORTISONE PO PRN (09:00)
[2020-01-22] MEDS ORDERED: MEMANTINE HCL 14 MG PO SCH (09:00)
[2020-01-22] MEDS ORDERED: AMLODIPINE BESYLATE 5 MG TAB PO SCH (09:00)
[2020-01-22] MEDS ORDERED: CLOPIDOGREL BISULFATE 75 MG TAB PO SCH (09:00)
[2020-01-22] MEDS ORDERED: PRAMOXINE PO PRN (09:00)
[2020-01-22] MEDS ORDERED: LISINOPRIL 40 MG TABLET PO SCH (09:00)
[2020-01-22] MEDS ORDERED: HYDROCHLOROTHIAZIDE 25 MG TABLET PO SCH (09:00)
[2020-01-22] MEDS ORDERED: CITALOPRAM 20 MG TABLET PO SCH (09:00)
[2020-01-22] MEDS ORDERED: DONEPEZIL HCL 5 MG TAB PO SCH (09:00)
--- NOTE | 2020-01-22 09:16 | NUR ---
CHART CHECK COMPLETED. Pt IS AN 80 Y.O. FEMALE ADMITTED SECONDARY TO UTI, POSSIBLE SEIZURE. Pt HAS A PAST MEDICAL HISTORY SIGNIFICANT FOR DEMENTIA, DM, HTN, HLD, AND GASTRITIS. Pt CURRENTLY ON REGULAR TEXTURE, THIN LIQUID DIET. PLEASE REQUEST FORMAL SKILLED SPEECH/SWALLOW EVALUATION IF Pt PRESENTS WITH +S/S OF ASPIRATION, DIFFICULTY SWALLOWING OR POOR P.O. Addendum: 01/22/20 at [address] Amended: Links added.
[2020-01-22] MEDS: CEFAZOLIN SODIUM 1 GM VIAL IVP SCH ×2 (09:48→16:52)
[2020-01-22] MEDS: SUCRALFATE 1 GM TABLET PO SCH ×3 (09:49→16:52)
--- NOTE | 2020-01-22 10:20 | NUR ---
CM Note: [facility] reacceptance CM spoke to Karma garcia/[facility], pt has reacceptance. EMS arranged and faxed for today, primary nurse to call [facility] once pt ready to DC. Pt met IPMM, per Dr Montero keep OBS, poss dc today, pending to round. Primary nurse aware. CM to cont to follow up.
[2020-01-22 12:00] VITALS: BP 141/64
[2020-01-22 16:00] VITALS: BP 135/60
--- NOTE | 2020-01-22 18:14 | NUR ---
patient refuses medications.
--- NOTE | 2020-01-22 18:35 | NUR ---
DISCHARGE PATIENT/DAUGHTER ( OTILIO MANE VIA PHONE ) GIVEN DISCHARGE INSTRUCTIONS VIA TEACH BACK. 20G PIV TO RFA DISCONTINUED, TIP INTACT. PATIENT TO TRANSFER BACK TO [facility]. REPORT GIVEN TO ANALILIA DORAN. PATIENT TO CONTINUE PO ANTIBIOTIC KEFLEX 500MG 1 CAP PO QID X 10 DAYS FOR UTI. PATIENT STABLE AT THIS TIME. PENDING TRANSPORTER FROM [facility].
[2020-01-22] MEDS ORDERED: OLOPATADINE HCL 0.1% 5ML DROPS OU SCH (21:00)
[2020-01-22] MEDS ORDERED: ATORVASTATIN CALCIUM 10 MG TABLET PO SCH (21:00)
== END 2020-01-22 18:30 ==
LOC: EDH 01:27 → EDHIP 04:45 → 3DH 10:49 → 3CH 22:37
PROVIDERS: ADMIT Family Medicine; ATTEND Family Medicine
DX: R56.9 Unspecified convulsions (principal); N39.0 Urinary tract infection, site not specified; Z20.828 Contact with and (suspected) exposure to other viral communicable diseases; R51 Headache; E11.9 Type 2 diabetes mellitus without complications; E78.5 Hyperlipidemia, unspecified; I10 Essential (primary) hypertension; G30.9 Alzheimer's disease, unspecified; F02.80 Dementia in other diseases classified elsewhere, unspecified severity, without behavioral disturbance, psychotic disturbance, mood disturbance, and anxiety; Z88.0 Allergy status to penicillin; Z88.5 Allergy status to narcotic agent
CPT/HCPCS: 36415; 70450; 71045; 80053; 81001; 82550; 82948 ×6; 83605 ×2; 83690; 83880; 84484; 85025; 85610; 85730; 87040 ×2; 87077; 87088; 87186; 87804 ×2; 93005; 96365; 96375; 96376; 99285; C9113; G0378 ×21; J0690 ×2; J1956 ×2; J7030; Q0163; U0003

== ENCOUNTER 2020-11-29 09:57 | Emergency (ER) | payer MEDICARE ==
[~2020-11-29 09:57] MED LIST changes: +ACET-2247 PO; +AMLO-258 PO; -AMLO10TA7 PO; +ATOR10 PO; +BACL10TA PO; +CITA20TA17 PO; +DICY10 PO; +DONE10TA43 PO; -FAMO20TA8 PO; +GLIP10TA9 PO; -GLIP5TAB11 PO; +HC A30CR13 TP; +HYDR-4457 PO; +HYDR12.54 PO; +IBUP-2077 PO; -INVOK100TB PO; -LISI40TA4 PO; +LISI40TA9 PO; +LOPE2TAB24 PO; +MELA1TAB17 PO; +MEMA14CA PO; -MEMA1CAP2 PO; +OLOP5DRO21 OU; +ONDA4TAB4 PO; +PANT40TA PO; -PRAV20TA4 PO; -TEMA15CA PO; -TYL3 PO
[2020-11-29] MEDS ORDERED: SODIUM CHLORIDE 0.9% 500ML 500 ML IV ONE (09:58)
[2020-11-29 10:45] LABS: BASOPHILS % (AUTO) 0.6 % (0.0-5.0); EOSINOPHILS % (AUTO) 0.5 % (0.0-8.0); HEMATOCRIT 34.2 % (36-48); LYMPHOCYTES % (AUTO) 18.2 % (21.0-51.0); MEAN CORPUSCULAR HEMOGLOBIN 28.8 pg (27.0-33.0); MEAN CORPUSCULAR HGB CONC 34.5 g/dL (32.0-36.0); MEAN CORPUSCULAR VOLUME 83.4 fL (79-99); MONOCYTES % (AUTO) 8.4 % (3.0-13.0); NEUTROPHILS % (AUTO) 71.9 % (40.0-77.0); PLATELET COUNT (AUTO) 274 K/uL (130-400); RED CELL DISTRIBUTION WIDTH 12.8 % (11.0-15.5); WHITE BLOOD COUNT (AUTO) 7.7 K/uL (4.8-10.8)
[2020-11-29] MEDS ORDERED: DEXAMETHASONE SOD PHOSPHATE 4 MG/ML 1ML VIAL ONE (10:46)
[2020-11-29 11:09] LABS: BILIRUBIN,TOTAL 0.3 mg/dL (0.2-1.0); CREATININE 1.1 mg/dL (0.5-1.5); POTASSIUM 4.5 mmol/L (3.5-5.1); TOTAL PROTEIN, SERUM 7.4 g/dL (6.0-8.3)
[2020-11-29 14:37] LABS: APPEARANCE,URINE Clear (CLEAR); BILIRUBIN,URINE Negative (NEGATIVE); COLOR,URINE Yellow (YELLOW); GLUCOSE, URINE (UA) Negative (NEGATIVE); KETONES,URINE Trace mg/dL (NEGATIVE); LEUKOCYTE ESTERASE ,URINE Negative (NEGATIVE); NITRATE,URINE Negative (NEGATIVE); OCCULT BLOOD,URINE Negative (NEGATIVE); PROTEIN,URINE Negative (NEGATIVE); UROBILINOGEN,URINE 0.2 mg/dL (0.2-1.0)
== END 2020-11-29 14:57 | disposition home or self-care (01) ==
LOC: EDH 09:57
DX: R53.1 Weakness (principal); R10.13 Epigastric pain; I10 Essential (primary) hypertension; E78.5 Hyperlipidemia, unspecified; E11.9 Type 2 diabetes mellitus without complications; K21.9 Gastro-esophageal reflux disease without esophagitis; F32.9 Major depressive disorder, single episode, unspecified; Z88.0 Allergy status to penicillin; Z88.6 Allergy status to analgesic agent; Z72.0 Tobacco use
CPT/HCPCS: 36415; 80053; 81003; 85025; 96374; 99283; J1100; J7040

== ENCOUNTER → 2021-10-22 | Outpatient (CLI) | payer OTHER, MEDICARE | END | disposition home or self-care (01) | LOC: SHCH 14:12 | PROVIDERS: ATTEND Internal Medicine Cardiovascular Disease | DX: I35.8 Other nonrheumatic aortic valve disorders (principal); I27.20 Pulmonary hypertension, unspecified; I25.10 Atherosclerotic heart disease of native coronary artery without angina pectoris; I11.9 Hypertensive heart disease without heart failure; E78.5 Hyperlipidemia, unspecified; E78.2 Mixed hyperlipidemia; E11.9 Type 2 diabetes mellitus without complications | CPT/HCPCS: 93306 ==

== ENCOUNTER → 2021-10-25 | Outpatient (CLI) | payer OTHER, MEDICARE ==
[~2021-10-25] MED LIST changes: +REGADENOSON 0.4 MG/5 ML PF SYG IVP SCH
== END | disposition home or self-care (01) ==
LOC: SHCH 07:30
PROVIDERS: ATTEND Internal Medicine Cardiovascular Disease
DX: I35.8 Other nonrheumatic aortic valve disorders (principal); I10 Essential (primary) hypertension; E78.5 Hyperlipidemia, unspecified; Z95.5 Presence of coronary angioplasty implant and graft
CPT/HCPCS: 78452; 93017; 96374; A9500 ×2; J2785

== ENCOUNTER 2021-11-07 12:57 | Emergency (ER) | payer OTHER, MEDICARE ==
[~2021-11-07] VITALS: Ht 157.5 cm; Wt 61.2 kg
[~2021-11-07 12:57] MED LIST changes: -REGADENOSON 0.4 MG/5 ML PF SYG IVP SCH
[2021-11-07] MEDS ORDERED: ACETAMINOPHEN 500 MG TABLET PO SCH (13:00)
[2021-11-07 13:45] LABS: BASOPHILS % (AUTO) 0.6 % (0.0-5.0); EOSINOPHILS % (AUTO) 3.6 % (0.0-8.0); HEMATOCRIT 34.7 % (36-48); LYMPHOCYTES % (AUTO) 15.4 % (21.0-51.0); MEAN CORPUSCULAR HEMOGLOBIN 27.7 pg (27.0-33.0); MEAN CORPUSCULAR HGB CONC 32.9 g/dL (32.0-36.0); MEAN CORPUSCULAR VOLUME 84.2 fL (79-99); MONOCYTES % (AUTO) 9.9 % (3.0-13.0); NEUTROPHILS % (AUTO) 70.2 % (40.0-77.0); PLATELET COUNT (AUTO) 322 K/uL (130-400); RED BLOOD CELL COUNT(AUTO) 4.12 MIL/uL (4.00-5.50); RED CELL DISTRIBUTION WIDTH 14.7 % (11.0-15.5); WHITE BLOOD COUNT (AUTO) 9.6 K/uL (4.8-10.8)
[2021-11-07 13:57] LABS: ALBUMIN 3.6 g/dL (3.5-5.0); BILIRUBIN,TOTAL 0.2 mg/dL (0.2-1.0); POTASSIUM 4.5 mmol/L (3.5-5.1)
[2021-11-07 14:47] LABS: APPEARANCE,URINE Cloudy (CLEAR); BILIRUBIN,URINE Negative (NEGATIVE); COLOR,URINE Yellow (YELLOW); GLUCOSE, URINE (UA) TRACE mg/dL (NEGATIVE); KETONES,URINE Negative (NEGATIVE); LEUKOCYTE ESTERASE ,URINE Large (NEGATIVE); NITRATE,URINE Positive (NEGATIVE); OCCULT BLOOD,URINE Trace (NEGATIVE); PH,URINE 5.5 (5.0-8.0); PROTEIN,URINE Negative (NEGATIVE); UROBILINOGEN,URINE 0.2 mg/dL (0.2-1.0)
[2021-11-07 14:59] LABS: BACTERIA,URINE Few /HPF (None Seen); MUCUS,URINE Rare LPF (None Seen); SQUAMOUS EPITHELIAL CELL,UR Few /HPF (0-2); TRANSITIONAL EPI CELLS,URINE Few /HPF (None Seen)
[2021-11-07] MEDS ORDERED: CEFTRIAXONE 1G VIAL IVP ONE (15:00)
[2021-11-07] MEDS ORDERED: 0.9%NACL 50ML 50 ML IV ONE (15:24)
[2021-11-07] MEDS ORDERED: ACET-3204 PO (15:45)
[2021-11-07] MEDS ORDERED: CEPH500B PO (15:45)
[2021-11-07 16:54] VITALS: BP 134/74
== END 2021-11-07 16:55 | disposition home or self-care (01) ==
LOC: EDH 12:57
DX: S00.03XA Contusion of scalp, initial encounter (principal); N39.0 Urinary tract infection, site not specified; E78.00 Pure hypercholesterolemia, unspecified; E11.9 Type 2 diabetes mellitus without complications; F03.90 Unspecified dementia, unspecified severity, without behavioral disturbance, psychotic disturbance, mood disturbance, and anxiety; Z88.0 Allergy status to penicillin; Z88.5 Allergy status to narcotic agent; Z79.899 Other long term (current) drug therapy; W22.8XXA Striking against or struck by other objects, initial encounter; Y93.89 Activity, other specified; Y92.098 Other place in other non-institutional residence as the place of occurrence of the external cause; Y99.8 Other external cause status
CPT/HCPCS: 36415; 70450; 71045; 80053; 81001; 84484; 85025; 87077; 87088; 87186; 93005; 96374; 99285; J0696